=== PATIENT | male | born 1960 | race Caucasian/White ===

== ENCOUNTER → 2023-01-24 | Outpatient (CLI) | payer OTHER ==
--- NOTE | 2023-01-24 13:32 | PE ---
EXAMINATION TYPE: PET CT fusion skull to thigh DATE OF EXAM: 01/24/2023 CLINICAL INDICATION:Male, 62 years old with history of C61 Prostate CA; TECHNIQUE: Following the intravenous administration of 5.11 mCi of Ga-68 Illuccix (PSMA), whole bod y images are performed from the skull base to the midthigh. Images are reviewed on the computer in t he coronal, axial, and sagittal planes. Reconstructed rotating images are created on independent wor kstation and reviewed on the computer. A non-contrast CT is performed in conjunction with the PET s can. CT DLP: 1013 mGycm, Automated exposure control for dose reduction was used. COMPARISON: CT None, PET/CT None, FINDINGS: Mediastinal SUV mean is 1.4. Hepatic parenchyma SUV mean is 6.1. SKULL BASE AND NECK: No suspicious radiotracer activity. CHEST, MEDIASTINUM, AND HILAR REGION: No suspicious radiotracer activity. ABDOMEN AND PELVIS: Heterogenous uptake within the prostate gland max SUV 10.0. No definitive evidenc e for uptake outside the prostate gland. MUSCULOSKELETAL STRUCTURES: No suspicious radiotracer activity. OTHER CT: Atherosclerosis of the arterial vasculature including the carotid bifurcations. Left renal probable simple cyst right ventral wall fat-containing hernia. Scattered colonic diverticula right pr obable posterior kidney cyst. Subcutaneous back probable sebaceous cyst just left of midline measurin g up to 2.4 cm. Air cyst in the left midlung along the fissure. IMPRESSION: Heterogenous radiotracer uptake within the prostate gland, No evidence for uptake outside the prostat e gland. Correlate for primary prostatic adenocarcinoma. Consider MRI prostate gland to evaluate for clinically significant prostatic adenocarcinoma if not already performed.
== END | disposition home or self-care (01) ==
LOC: RADPETMAIN 07:37
PROVIDERS: ATTEND Urology
DX: C61 Malignant neoplasm of prostate (principal)
CPT/HCPCS: 78815; A9596